=== PATIENT | female | born 1960 | race Caucasian/White ===

== ENCOUNTER → 2018-05-12 16:09 | Outpatient (CLI) | payer BC, SELFPAY ==
--- NOTE | 2018-05-12 16:15 | MM_ITS ---
MM Dig screening mamm BI w/CAD CAD Screening COMPARISON: Digital mammograms 10/27/2015 and 12/11/2013 INDICATION: There is no personal or family history of breast cancer TECHNIQUE: Standard CC and MLO images were obtained. R2 CAD reviewed. FINDINGS: Scattered fibro-glandular densities are seen throughout both breasts. There is no suspicious lesion in either breast and no suspicious microcalcifications. IMPRESSION: Fibrofatty parenchyma with no suspicious lesion seen BI-RADS Category: 1 Negative RECOMMENDED FOLLOW-UP: 1YR - 1 YEAR FOLLOW-UP (A letter has been sent to the patient regarding results of the study.)
== END ==
PROVIDERS: Family Provider Internal Medicine Adolescent Medicine; Visit Provider Nurse Practitioner Family
DX: Z12.31 Encounter for screening mammogram for malignant neoplasm of breast (principal)
CPT/HCPCS: 77067

== ENCOUNTER → 2019-01-28 12:56 | Outpatient (CLI) | payer BC, SELFPAY ==
--- NOTE | 2019-01-28 13:04 | US_ITS ---
US soft tissue head and neck CLINICAL INDICATION: ITS.REASON: LUMP ON NECK ORDERING PHYSICIAN: Quincy Driscoll MD PATIENT AGE: 58 years Comparison: None FINDINGS: The submandibular glands and parotid glands have an unremarkable appearance. There are few small lymph nodes in the mid neck region on the right measuring 1.7 and 1.2 cm.. No abnormal fluid collections or masses. IMPRESSION: There are few small nodes in the mid neck region on the right. CT neck with contrast may be of further value if clinically warranted
== END ==
PROVIDERS: PCP Internal Medicine Adolescent Medicine; Visit Provider Internal Medicine Adolescent Medicine
DX: R22.1 Localized swelling, mass and lump, neck (principal)
CPT/HCPCS: 76536

== ENCOUNTER → 2019-11-28 11:22 | Outpatient (CLI) | payer BC, SELFPAY ==
--- NOTE | 2019-11-28 11:35 | XR_ITS ---
PROCEDURE: XR SHOULDER LT MIN 2V CLINICAL INDICATION: LEFT ANTERIOR SHOULDER PAIN COMPARISON: No exams were available for comparison FINDINGS: There is no acute fracture dislocation or other focal bony lesion. IMPRESSION: No acute findings. Dictated by: Logan Hansen 11/28/2019 11:58 Electronically signed by Logan Hansen in [place] 11/28/2019 11:58
== END ==
PROVIDERS: PCP Internal Medicine Adolescent Medicine; Visit Provider Internal Medicine Adolescent Medicine
DX: M25.512 Pain in left shoulder (principal)
CPT/HCPCS: 73030

== ENCOUNTER → 2020-03-09 14:40 | Outpatient (CLI) | payer BC, SELFPAY ==
--- NOTE | 2020-03-09 14:50 | MR_ITS ---
PROCEDURE: MR SHOULDER LT WO CON CLINICAL INDICATION: ROTATOR CUFF SYNDROME OF LEFT SHOULDER Left shoulder pain COMPARISON: XR SHOULDER LT MIN 2V from 11/28/2019 TECHNIQUE: Routine multiplanar multi echo sequences are performed without gadolinium enhancement. FINDINGS: Mild osteoarthritic changes are present at the acromioclavicular joint. There is some mild thickening with slight increased T2 signal of the supraspinatus tendon consistent with tendinopathy/tendinosis. No evidence of rotator cuff tear. The infraspinatus, subscapularis, and teres minor tendons have an unremarkable appearance. No obvious labral tear. Subchondral cystic changes are present along the humeral head posteriorly. There are minimal osteoarthritic changes of the glenohumeral joint. Bicipital tendon is in place. IMPRESSION: The 1. Mild osteoarthritic change of the acromioclavicular and glenohumeral joint. 2. No evidence of rotator cuff tear. 3. Small subchondral cystic changes of the humeral head posteriorly Dictated by: León Patel MD 03/10/2020 10:04 Electronically signed by León Patel MD in [place] 03/10/2020 10:04
== END ==
PROVIDERS: PCP Internal Medicine Adolescent Medicine; Visit Provider Internal Medicine Adolescent Medicine
DX: M75.102 Unspecified rotator cuff tear or rupture of left shoulder, not specified as traumatic (principal)
CPT/HCPCS: 73221

== ENCOUNTER → 2021-11-07 11:27 | Outpatient (CLI) | payer BC, SELFPAY ==
[2021-11-07 12:14] LABS: Basophils # 0.2 K/mm3 (0-0.2); Basophils % 2.8 % (0.1-2.0); Eosinophils % 0.6 % (0.1-12.0); Hematocrit 41.2 % (37.0-47.0); Hemoglobin 13.4 g/dL (12.2-16.2); Lymphocytes # 0.9 K/mm3 (0.7-4.5); Lymphocytes % 15.8 % (10-50); Mean Corpuscular HGB Conc 32.5 g/dL (31.8-35.4); Mean Corpuscular Hemoglobin 29.4 pg (27.0-31.2); Mean Corpuscular Volume 90.4 fl (81-99); Mean Platelet Volume 8.2 fl (7.4-10.4); Monocytes # 0.6 K/mm3 (0.1-1.0); Monocytes % 10.6 % (1.7-9.3); Neutrophils # 3.8 K/mm3 (1.8-7.8); Neutrophils % 70.2 % (37.0-80.0); Platelet Count 179 K/mm3 (142-424); Red Blood Count 4.56 M/mm3 (4.20-5.40); Red Cell Distribution Width 13.2 % (11.5-17.5); White Blood Count 5.4 K/mm3 (4.8-10.8)
[2021-11-07 12:35] LABS: Chloride 98 mmol/L (98-107); Potassium 3.6 mmoL/L (3.5-5.1); Sodium 136 mmol/L (136-145)
[2021-11-07 12:38] LABS: Alanine Aminotransferase 24 U/L (12-78); Albumin Level 4.4 g/dl (3.5-5.0); Albumin/Globulin Ratio 1.6 (1.1-1.8); Alkaline Phosphatase 71 U/L (38-126); Anion Gap 12.6 mEq/L (5-15); Aspartate Amino Transferase 45 U/L (14-36); Bilirubin,Total 0.4 mg/dl (0.2-1.3); Blood Urea Nitrogen 12 mg/dl (7-17); Calcium 8.9 mg/dl (8.4-10.2); Carbon Dioxide 29 mmol/L (22.0-30.0); Estimated Glomerular Filt Rate 85 ml/min (>60); GFR (African American) 103 ML/MIN (>60); Globulin 2.8 g/dL (1.3-3.2); Glucose 116 mg/dl (74-100); Total Protein,Serum 7.2 g/dl (6.3-8.2)
== END ==
PROVIDERS: PCP Nurse Practitioner Family; Visit Provider Nurse Practitioner Family
DX: U07.1 COVID-19 (principal); R05.9 Cough, unspecified; R50.9 Fever, unspecified
CPT/HCPCS: 36415; 80053; 85025; 87275; 87276; C9803; U0003; U0005

== ENCOUNTER → 2023-04-16 10:28 | Outpatient (CLI) | payer BC, SELFPAY ==
--- NOTE | 2023-04-16 | US_ITS ---
FINAL REPORT CLINICAL HISTORY: .pt has palp area rt lat neck-- thyroid surg absent FINDINGS: Thyroid/neck soft tissue ultrasound: The patient is status post total thyroidectomy. The submandibular and parotid glands are seen bilaterally, and are normal in appearance and size. No focal mass is identified in the right side of the neck. On the left side there is a 2.6 x 1.7 cm heterogeneous possible mass, of uncertain etiology. IMPRESSION: Status post total thyroidectomy. 2.6 x 1.7 heterogeneous focus of echogenicity in the left neck soft tissues. This is of uncertain etiology, and would recommend a CT examination of the neck with contrast for further evaluation. Reviewed, Interpreted and Dictated by Ino Palma III, MD Transcribed by Radha Henao Authenticated and [facility]
== END ==
PROVIDERS: PCP Nurse Practitioner Family; Visit Provider Physician Assistant
DX: E07.9 Disorder of thyroid, unspecified (principal)
CPT/HCPCS: 76536

== ENCOUNTER → 2023-04-18 10:40 | Outpatient (CLI) | payer BC, SELFPAY ==
[2023-04-18 11:11] LABS: Basophils % 0.5 % (0.1-2.0); Eosinophils # 0.1 K/mm3 (0.0-0.4); Eosinophils % 1.6 % (0.1-12.0); Hematocrit 44.2 % (37.0-47.0); Hemoglobin 14.4 g/dL (12.2-16.2); Lymphocytes # 1.9 K/mm3 (0.7-4.5); Lymphocytes % 26.8 % (10-50); Mean Corpuscular HGB Conc 32.6 g/dL (31.8-35.4); Mean Corpuscular Hemoglobin 29.6 pg (27.0-31.2); Mean Corpuscular Volume 90.6 fl (81-99); Mean Platelet Volume 8.3 fl (7.4-10.4); Monocytes # 0.5 K/mm3 (0.1-1.0); Monocytes % 6.4 % (1.7-9.3); Neutrophils # 4.6 K/mm3 (1.8-7.8); Neutrophils % 64.7 % (37.0-80.0); Platelet Count 207 K/mm3 (142-424); Red Blood Count 4.87 M/mm3 (4.20-5.40); Red Cell Distribution Width 12.5 % (11.5-17.5); White Blood Count 7.1 K/mm3 (4.8-10.8)
[2023-04-18 11:29] LABS: Chloride 97 mmol/L (98-107)
[2023-04-18 11:30] LABS: Sodium 137 mmol/L (136-145)
[2023-04-18 11:32] LABS: Alanine Aminotransferase 31 U/L (12-78); Alkaline Phosphatase 85 U/L (38-126); Aspartate Amino Transferase 39 U/L (14-36); Bilirubin,Total 0.7 mg/dl (0.2-1.3); Blood Urea Nitrogen 15 mg/dl (7-17); Carbon Dioxide 30 mmol/L (22.0-30.0); Estimated Glomerular Filt Rate 73 ml/min (>60); GFR (African American) 88 ML/MIN (>60)
[2023-04-18 11:33] LABS: Albumin Level 4.2 g/dl (3.5-5.0); Albumin/Globulin Ratio 1.8 (1.1-1.8); Calcium 9.1 mg/dl (8.4-10.2); Chol/HDL Ratio 1.7 (1-3.5); Cholesterol 129 mg/dl (140-200); Globulin 2.3 g/dL (1.3-3.2); Glucose 99 mg/dl (74-100); HDL Cholesterol 77 mg/dl (40-60); Magnesium 1.5 mg/dl (1.6-2.3); Total Protein,Serum 6.5 g/dl (6.3-8.2); Triglycerides 77 mg/dl (30-150); VLDL Cholesterol 15 mg/dL (0-40)
[2023-04-18 11:50] LABS: 25-OH Vitamin D, Total 30.4 ng/mL (30-100); Free Thyroxine Index 4.1 ug/dL (5.93-13.13); T4 (Thyroxine) 11.1 ug/dl (5.53-11.0); Triiodothryronine (T3) Uptake 37 % (23.5-40.5)
[2023-04-18 13:04] LABS: Hemoglobin A1C 6.2 % (4.0-6.0)
[2023-04-18 13:30] LABS: Vitamin B12 344 pg/mL (239-931)
== END ==
PROVIDERS: PCP Internal Medicine Adolescent Medicine; Visit Provider Physician Assistant
DX: Z00.00 Encounter for general adult medical examination without abnormal findings (principal); M54.2 Cervicalgia; E78.5 Hyperlipidemia, unspecified; E11.9 Type 2 diabetes mellitus without complications; E89.0 Postprocedural hypothyroidism; Z79.84 Long term (current) use of oral hypoglycemic drugs
CPT/HCPCS: 36415; 80053; 80061; 82306; 82607; 83036; 83735; 84436; 84443; 84479; 85025

== ENCOUNTER → 2023-04-19 13:42 | Outpatient (CLI) | payer BC, SELFPAY ==
--- NOTE | 2023-04-19 13:52 | CT_ITS ---
FINAL REPORT TECHNIQUE: Thin section axial CT images were obtained through the neck after intravenous contrast administration. Coronal and sagittal reformats were also obtained. This study was performed with techniques to keep radiation doses as low as reasonably achievable (ALARA). Individualized dose reduction techniques using automated exposure control or adjustment of mA and/or kV according to the patient''s size were employed. CLINICAL HISTORY: NECK MASS, BB marker placed on palpable area on right side. recent ultrasound showed left side possible mass, Right side neck pain radiates down right arm. COMPARISON: Ultrasound soft tissue neck 04/16/2023 FINDINGS: The nasopharynx, oropharynx, hypopharynx and larynx are unremarkable. There is no mass or fluid collection identified. The thyroid gland is unremarkable. The visualized sinuses are clear. There is no acute osseous abnormality. There is no abnormal contrast enhancement. No abnormality identified in the right neck at the region of the marker. IMPRESSION: No abnormality identified. Reviewed, Interpreted and Dictated by Ino Palma III, MD Transcribed by Arielle Hair Authenticated and [facility]
== END ==
PROVIDERS: PCP Internal Medicine Adolescent Medicine; Visit Provider Physician Assistant
DX: R22.1 Localized swelling, mass and lump, neck (principal)
CPT/HCPCS: 70491; Q9967

== ENCOUNTER 2025-04-02 08:52 | Outpatient (CLI) | payer BC, SELFPAY ==
[2025-04-02 09:14] LABS: Basophils # 0.1 K/mm3 (0-0.2); Basophils % 0.8 % (0.1-2.0); Eosinophils # 0.1 Kmm3 (0.0-0.4); Eosinophils % 1.3 % (0.1-12.0); Hematocrit 41.4 % (37.0-47.0); Immature Granulocytes # 0.02 10^3uL; Immature Granulocytes % 0.3 %; Lymphocytes # 2.1 K/mm3 (0.7-4.5); Lymphocytes % 33.3 % (10-50); Mean Corpuscular HGB Conc 33.8 g/dL (31.8-35.4); Mean Corpuscular Hemoglobin 30.8 pg (27.0-31.2); Mean Corpuscular Volume 91.2 fl (81-99); Mean Platelet Volume 10.2 fl (7.4-10.4); Monocytes # 0.5 K/mm3 (0.1-1.0); Monocytes % 8.3 % (1.7-9.3); Neutrophils # 3.5 K/mm3 (1.8-7.8); Nucleated Red Blood Cells # 0 10^3/uL; Nucleated Red Blood Cells % 0 %; Platelet Count 225 K/mm3 (142-424); Red Blood Count 4.54 M/mm3 (4.20-5.40); Red Cell Distribution Width 12.3 % (11.5-17.5); Red Cell Distribution Width-SD 41.3 fL; White Blood Count 6.3 K/mm3 (4.8-10.8)
[2025-04-02 10:25] LABS: Alanine Aminotransferase 32 U/L (12-78); Albumin Level 4.3 g/dl (3.5-5.0); Albumin/Globulin Ratio 1.9 (1.1-1.8); Alkaline Phosphatase 74 U/L (38-126); Aspartate Amino Transferase 42 U/L (14-36); Bilirubin,Total 1.1 mg/dl (0.2-1.3); Blood Urea Nitrogen 13 mg/dl (7-17); Calcium 9.3 mg/dl (8.4-10.2); Carbon Dioxide 33 mmol/L (22.0-30.0); Chloride 100 mmol/L (98-107); Chol/HDL Ratio 1.5 (1-3.5); Cholesterol 126 mg/dl (140-200); Estimated Glomerular Filt Rate 56 ml/min (>60); GFR (African American) 68 ML/MIN (>60); Globulin 2.3 g/dL (1.3-3.2); Glucose 90 mg/dl (74-100); HDL Cholesterol 82 mg/dl (40-60); Sodium 138 mmol/L (136-145); Total Protein,Serum 6.6 g/dl (6.3-8.2); Triglycerides 66 mg/dl (30-150); VLDL Cholesterol 13 mg/dL (0-40)
[2025-04-02 10:36] LABS: Direct LDL Cholesterol 42.58 mg/dL (100-129)
[2025-04-02 10:41] LABS: Free T4 (Free Thyroxine) 0.91 ng/dl (0.78-2.19)
== END 2025-04-02 23:59 | disposition home or self-care (01) ==
LOC: LAB 08:54
PROVIDERS: PCP Internal Medicine Adolescent Medicine; Visit Provider Physician Assistant
DX: Z00.00 Encounter for general adult medical examination without abnormal findings (principal); K63.5 Polyp of colon; R53.83 Other fatigue; Z12.31 Encounter for screening mammogram for malignant neoplasm of breast; I10 Essential (primary) hypertension; E03.9 Hypothyroidism, unspecified; E78.5 Hyperlipidemia, unspecified
CPT/HCPCS: 36415; 80053; 80061; 84439; 84443; 85025

== ENCOUNTER 2025-05-04 16:38 | Outpatient (CLI) | payer BC, SELFPAY ==
--- NOTE | 2025-05-04 | MM_ITS ---
PROCEDURE INFORMATION: Exam: MG Bilateral Screening 3D Mammography Exam date and time: 05/04/2025 4:52 PM Age: 64 years old Clinical indication: Screening examination TECHNIQUE: Imaging protocol: Bilateral Screening tomosynthesis and 2D mammography including computer-aided detection (CAD) when performed. COMPARISON: 1. MG SCBI MM Dig screening mamm BI w/CAD 05/12/2018 4:20 PM 2. MG DMSB DIG MAMM-SCREEN AVINASH 10/27/2015 10:00 AM FINDINGS: MAMMOGRAPHY: Breast composition: There are scattered areas of fibroglandular density. Mass: None. Architectural distortion: None. Calcifications: No suspicious calcifications. Asymmetric density: None. Skin thickening: None. Axillary adenopathy: None. IMPRESSION: No mammographic evidence of malignancy. Annual screening is recommended unless otherwise clinically indicated. ASSESSMENT: BI-RADS Category 1: Negative.
== END 2025-05-04 23:59 | disposition home or self-care (01) ==
LOC: RAD 16:38
PROVIDERS: PCP Internal Medicine Adolescent Medicine; Visit Provider Physician Assistant
DX: Z12.31 Encounter for screening mammogram for malignant neoplasm of breast (principal); R92.323 Mammographic fibroglandular density, bilateral breasts
CPT/HCPCS: 77063; 77067

== ENCOUNTER 2025-05-24 13:32 | Outpatient (CLI) | payer BC, SELFPAY ==
--- NOTE | 2025-05-24 13:34 | XR_ITS ---
FINAL REPORT CLINICAL HISTORY: SCREENING COMPARISON: None FINDINGS: Using L1-4, the bone mineral density of the spine is 0.958 g/cm2, corresponding to T-score of -0.8. Using the left hip, the bone mineral density of the femoral neck is 0.612 g/cm2, corresponding to a T-score of -2.1. Using the right hip, the bone mineral density of the femoral neck is 0.67 g/cm2, corresponding to a T-score of -2.0. NOTE: T-score: Standard deviation compared with peak bone mass of young adult mean. *Following the recommendations of the International Society of Bone densitometry, classification of hip BMD is based on the lower of two T-scores; total hip or femoral neck. IMPRESSION: Diminished bone mineral density of the femoral necks bilaterally consistent with osteopenia. Normal bone mineral density of the lumbar spine. Reviewed, Interpreted and Dictated by Milo Villavicencio MD Transcribed by Radha Henao Authenticated and [facility]
== END 2025-05-24 23:59 | disposition home or self-care (01) ==
LOC: RAD 13:32
PROVIDERS: PCP Internal Medicine Adolescent Medicine; Visit Provider Physician Assistant
DX: M85.852 Other specified disorders of bone density and structure, left thigh (principal); M85.851 Other specified disorders of bone density and structure, right thigh; Z13.9 Encounter for screening, unspecified; Z78.0 Asymptomatic menopausal state
CPT/HCPCS: 77080